=== PATIENT | male | born 1955 | race Caucasian/White ===

== ENCOUNTER 2016-07-23 15:00 | Outpatient (CLI) | payer BC | END 2016-07-23 15:01 | disposition home or self-care (01) | LOC: BURLAB 15:00 | PROVIDERS: ATTEND Urology | DX: C61 Malignant neoplasm of prostate (principal) | CPT/HCPCS: 84153 ==

== ENCOUNTER 2017-01-21 15:48 | Outpatient (CLI) | payer BC | END 2017-01-21 15:49 | disposition home or self-care (01) | LOC: BURLAB 15:48 | PROVIDERS: ATTEND Urology | DX: C61 Malignant neoplasm of prostate (principal) | CPT/HCPCS: 36415; 84153 ==